=== PATIENT | female | born 1950 ===

== ENCOUNTER 2022-04-09 21:34 | Outpatient (REF) | payer MEDICARE, BC, SELFPAY ==
[2022-04-09 22:57] LABS: C Diff PCR Negative (Negative)
== END 2022-04-09 21:35 | disposition home or self-care (01) ==
LOC: LBN 21:34
PROVIDERS: Visit Provider Nurse Practitioner Family
DX: R19.7 Diarrhea, unspecified (principal)
CPT/HCPCS: 87493